=== PATIENT | female | born 1970 | race Caucasian/White ===

== ENCOUNTER 2018-05-04 21:52 | Emergency (ER) | payer OTHER, BC ==
[2018-05-04 21:58] VITALS: BMI 24.2
[2018-05-04] MEDS ORDERED: SODIUM CHLORIDE 1,000 ML IV STA (22:17)
--- NOTE | 2018-05-04 22:17 | PDOC ---
History of Present Illness - General Chief Complaint: Vomiting/Diarrhea Stated Complaint: abdominal pain Time Seen by Provider: 05/04/18 22:02 - History of Present Illness Initial Comments: 05/04/18 22:31 The patient is a 47 year old female with a history of HLD, Brain Aneurysm who presents for evaluation of nausea, vomiting, diarrhea. The patient reports that she is currently undergoing the bowel prep for a colonoscopy tomorrow and has been experiencing nausea, vomiting and diarrhea. She notes that when she has had colonoscopies in the past she has not experienced vomiting. She called her primary care provider Dr. Hernandez who referred the patient to the ED for further evaluation. She notes that her symptoms have significantly improved on presentation to the ED and otherwise denies fevers, chills, headache, SOB, chest pain, abdominal pain, or changes with urination. Past History - Past Medical History Allergies/Adverse Reactions: Allergies Allergy/AdvReac Type Severity Reaction Status Date / Time indomethacin [From Indocin] Allergy Rash Verified 05/04/18 21:58 iodine Allergy NAUSEA/VOMI Verified 05/04/18 21:58 TING Home Medications: Ambulatory Orders Levothyroxine [Synthroid -] 100 mcg PO DAILY 07/20/13 Rosuvastatin Calcium [Crestor] 5 mg PO HS tablet 02/14/15 Ranitidine [Zantac -] 150 mg PO HS 04/22/15 Ascorbic Acid [Vitamin C -] 1,000 mg PO DAILY 09/02/15 Cholecalciferol (Vitamin D3) [Vitamin D3] 2,000 unit PO DAILY 09/02/15 Zolpidem Tartrate [Ambien] 5 mg PO HS 09/02/15 Oxycodone HCl/Acetaminophen [Percocet 5-325 mg Tablet] 1 - 2 tab PO Q6H PRN #20 tab MDD 8 09/05/15 Methotrexate Sodium [Methotrexate] 2.5 mg PO DAILY 12/25/15 Iron/Folate No1/C/B12/Zinc/Dss [Feriva 21-7 Tablet] 1 each PO DAILY 12/27/15 Meloxicam 7.5 mg PO DAILY 01/03/16 Amox-Tr/K Cl [Augmentin - 875Mg Tablet] 1 tab PO BID #20 tablet 05/19/17 metroNIDAZOLE [Flagyl -] 500 mg PO TID #30 tablet 12/03/17 Anemia: Yes Asthma: No Cancer: No Cardiac Disorders: No (PALPITATIONS AT TIMES) CVA: No COPD: No CHF: No Dementia: No Diabetes: No GI Disorders: Yes Disorders: No HTN: No Hypercholesterolemia: Yes Liver Disease: No Seizures: Yes Thyroid Disease: Yes (HYPOTHYROID DISEASE) - Surgical History Abdominal Surgery: No Appendectomy: No Cardiac Surgery: No Cholecystectomy: No Lung Surgery: No Neurologic Surgery: Yes (aneurysms (BRAIN)) Orthopedic Surgery: Yes (RIGHT ROTATOR CUFF REPAIR) - Immunization History Immunization Up to Date: Yes - Suicide/Smoking/Psychosocial Hx Smoking Status: No Smoking History: Never smoked Have you smoked in the past 12 months: No Number of Cigarettes Smoked Daily: 0 If you are a former smoker, when did you quit?: 15YRS AGO Information on smoking cessation initiated: No Hx Alcohol Use: No Drug/Substance Use Hx: No Substance Use Type: None Hx Substance Use Treatment: No Review of Systems - Review of Systems Comments:: 05/04/18 22:39 Constitutional: No fevers, chills, fatigue, malaise HEENT: No Rhinorrhea, nasal congestion, visual changes Cardiovascular: No chest pain, syncope, palpitations, lightheadedness Respiratory: No Cough, SOB, Hemoptysis, Gastrointestinal: Nausea, Vomiting, diarrhea. No Abdominal pain, Constipation, Melena Genitourinary: No Dysuria, Frequency, Urgency, Hesitancy, Hematuria, Flank pain Musculoskeletal: No Myalgia, arthralgia Skin: No rashes, itching, bruising, pallor Neurologic: No Headache, Dizziness, Numbness, Weakness, or Tingling Psychiatric: No Hallucinations. No SI or HI *Physical Exam - Vital Signs Last Vital Signs Temp Pulse Resp BP Pulse Ox 98.0 F 81 16 134/83 100 05/04/18 21:55 05/04/18 21:55 05/04/18 21:55 05/04/18 21:55 05/04/18 21:55 - Physical Exam Comments: 05/04/18 22:40 General Appearance: Nourished. No Apparent Distress HEENT: No Pharyngeal Erythema, Tonsillar Exudate, Tonsillar Erythema Neck: No Cervical Lymphadenopathy Respiratory/Chest: Lungs Clear, Normal Breath Sounds. No Crackles, Rales, Rhonchi, Wheezing Cardiovascular: Regular Rhythm, Regular Rate. No Murmur, Gallops, Rubs Gastrointestinal/Abdominal: Hyperactive Bowel Sounds, Soft. No Guarding, Rebound , Tenderness Musculoskeletal: No CVA Tenderness Extremity: Normal Capillary Refill Integumentary: Normal Color, Dry, Warm Neurologic: Fully Oriented, Alert, Normal Mood/Affect, Normal Response, ED Treatment Course - LABORATORY CBC & Chemistry Diagram: 05/04/18 22:38 05/04/18 22:38 Medical Decision Making - Medical Decision Making 05/04/18 22:40 The patient is a 47 year old female with a history of HLD, Brain Aneurysm who presents for evaluation of nausea, vomiting, diarrhea. Given the patient's history and physical exam, it is likely her symptoms are due to the bowel prep for her colonoscopy tomorrow. However, we will obtain a cbc, cmp to evaluate further. We will treat with iv fluids and pepcid and continue to monitor and reassess while here in the ED. 05/04/18 23:18 CBC, cmp, are unremarkable. The patient continues to appears clinically well on exam. We are comfortable discharging the patient home at this time. We discussed the results, plan, and return precautions with the patient who voiced understanding and is agreeable with the plan. *DC/Admit/Observation/Transfer Diagnosis at time of Disposition: Nausea & vomiting Qualifiers: Vomiting type: unspecified Vomiting Intractability: unspecified Qualified Code( s): R11.2 - Nausea with vomiting, unspecified - Discharge Dispostion Disposition: HOME Condition at time of disposition: Stable Decision to Admit order: No - Referrals Referrals: Juan C Hernandez MD [Primary Care Provider] - - Patient Instructions Printed Discharge Instructions: DI for Nausea -- Adult, DI for Vomiting -- Adult Additional Instructions: Please return to the ER if you experience concerning or worsening symptoms including worsening difficulty breathing, weakness, or chest pain, abdominal pain. Your lab results were normal here in the ER. Please call to schedule a follow up appointment with your primary care provider to discuss your ER visit and further management of your symptoms. - Post Discharge Activity
[2018-05-04] MEDS ORDERED: FAMOTIDINE 20 MG/50 ML IVPB 20 MG/50 ML MG IVPB ONE ×2 (22:21→22:30)
[2018-05-04 22:46] LABS: BASO % 0.5 % (0-2.0); EOS % 3.9 % (0-4.5); HEMATOCRIT 33.9 % (32.4-45.2); HEMOGLOBIN 10.9 GM/dL (10.7-15.3); LYMPH % 34.5 % (8-40); MCH 25.1 pg (25.7-33.7); MCHC 32.1 g/dl (32.0-36.0); MEAN CELL VOLUME 78.1 fl (80-96); MEAN PLT VOLUME 8.3 fl (7.5-11.1); MONO % 8.1 % (3.8-10.2); PLATELET COUNT 281 K/MM3 (134-434); RBC 4.34 M/mm3 (3.60-5.2); RDW 14.2 % (11.6-15.6); WHITE BLOOD COUNT 7.3 K/mm3 (4.0-10.0)
--- NOTE | 2018-05-04 23:02 | PDOC ---
Attending Attestation - Physicial Exam PE: 05/04/18 23:09 GENERAL: Well developed, well nourished. Awake and alert. No acute distress. HEENT: Normocephalic, atraumatic. PERRLA, EOMI. No conjunctival pallor. Sclera are non- icteric. Moist mucous membranes. Oropharynx is clear. NECK: Supple. Full ROM. No JVD. Carotid pulses 2+ and symmetric, without bruits. No thyromegaly. No lymphadenopathy. CARDIOVASCULAR: Regular rate and rhythm. No murmurs, rubs, or gallops. Distal pulses are 2+ and symmetric. PULMONARY: No evidence of respiratory distress. Lungs clear to auscultation bilaterally. No wheezing, rales or rhonchi. ABDOMINAL: +Hyperactive bowel sounds. Soft. Non-tender. Non-distended. No rebound or guarding. No organomegaly. Normoactive bowel sounds. MUSCULOSKELETAL Normal range of motion at all joints. No bony deformities or tenderness. No CVA tenderness. EXTREMITIES: No cyanosis. No clubbing. No edema. No calf tenderness. SKIN: Warm and dry. Normal capillary refill. No rashes. No jaundice. NEUROLOGICAL: Alert, awake, appropriate. Cranial nerves 2-12 intact. PSYCHIATRIC: Cooperative. Good eye contact. Appropriate mood and affect. Documentation prepared by Leyla Donohue, acting as medical transport specialist for Patricia Bojorquez MD. <Leyla Donohue - Last Filed: 05/04/18 23:10> - Resident Resident Name: Abelardo Sam - ED Attending Attestation I have performed the following: I have examined & evaluated the patient, The case was reviewed & discussed with the resident, I agree w/resident's findings & plan, Exceptions are as noted - HPI HPI: 05/04/18 23:02 47-year-old female who was taking GoLYTELY for her colonoscopy tomorrow. Presents because of diarrhea and vomiting - Medical Decision Making 05/04/18 23:18 Patient's labs reviewed, and they are unremarkable Patient has benign abdominal exam Patient states that she feels much better now and she did complete all of her colonoscopy prep. Patient will be discharged home <Patricia Bojorquez - Last Filed: 05/04/18 23:19>
[2018-05-04 23:07] LABS: ALBUMIN 4.3 g/dl (3.4-5.0); ALK PHOS 67 U/L (45-117); ANION GAP 8 MMOL/L (8-16); BILIRUBIN,TOTAL 0.5 mg/dL (0.2-1); BLOOD UREA NITROGEN 8 mg/dL (7-18); CALCIUM 9.4 mg/dL (8.5-10.1); CHLORIDE 101 mmol/L (98-107); CO2 26 mmol/L (21-32); CREATININE 0.7 mg/dL (0.55-1.3); GLUCOSE,RANDOM 89 mg/dL (74-106); POTASSIUM 3.6 mmol/L (3.5-5.1); SGOT/AST 28 U/L (15-37); SGPT/ALT 38 U/L (13-61); SODIUM 135 mmol/L (136-145); TOT PROT 7.7 g/dl (6.4-8.2)
[2018-05-04 23:37] VITALS: BP 109/72; PULSE 77; TEMP 97.8
== END 2018-05-04 23:37 | disposition home or self-care (01) ==
LOC: JER 21:52
PROC: 3E033GC Introduction of Other Therapeutic Substance into Peripheral Vein, Percutaneous Approach (ICD-10-PCS; principal; 2018-05-04)
DX: R11.2 Nausea with vomiting, unspecified (principal); E78.00 Pure hypercholesterolemia, unspecified; E03.9 Hypothyroidism, unspecified; Z86.79 Personal history of other diseases of the circulatory system
CPT/HCPCS: 36415; 80053; 83690; 85025; 96365; 99281-25; J7030

== ENCOUNTER 2023-08-04 20:47 | Emergency (ER) | payer OTHER, BC ==
[2023-08-04 21:21] VITALS: BP 172/100; PULSE 90; RESP 18; TEMP 98.4; BMI 23.3
[2023-08-04] MEDS: SODIUM CHLORIDE 1,000 ML IV ONE (21:23)
[2023-08-04 21:29] LABS: HEMATOCRIT 34.7 % (32.4-45.2); HEMOGLOBIN 11.2 G/dL (10.7-15.3); MCH 24.9 pg (25.7-33.7); MCHC 32.3 g/dl (32.0-36.0); MEAN CELL VOLUME 76.9 fl (80-96); MEAN PLT VOLUME 9.2 fl (7.5-11.1); PLATELET COUNT 234.3 10^3/uL (134-434); RBC 4.51 10^6/uL (3.60-5.2); RDW 15.3 % (11.6-15.6); WHITE BLOOD COUNT 6.8 10^3/uL (4.0-10.8)
[2023-08-04 21:41] LABS: ALBUMIN 4.3 g/dl (3.4-5.0); ALK PHOS 87 U/L (45-117); ANION GAP 7 mmol/L (4-13); BILIRUBIN,TOTAL 0.2 mg/dl (0.2-1); CALCIUM 9.5 mg/dl (8.5-10.1); CHLORIDE 105 mmol/L (98-107); CO2 28 mmol/L (21-32); CREATININE 0.9 mg/dl (0.6-1.3); GLUCOSE,RANDOM 95 mg/dl (74-106); POTASSIUM 3.8 mmol/L (3.5-5.1); SGOT/AST 17 U/L (15-37); SGPT/ALT 12 U/L (7-52); SODIUM 140 mmol/L (136-145)
== END 2023-08-05 00:03 | disposition home or self-care (01) ==
LOC: FER 20:47
PROC: 3E0337Z Introduction of Electrolytic and Water Balance Substance into Peripheral Vein, Percutaneous Approach (ICD-10-PCS; principal; 2023-08-04)
DX: R00.2 Palpitations (principal); E05.90 Thyrotoxicosis, unspecified without thyrotoxic crisis or storm
CPT/HCPCS: 36415; 80053; 82550; 84443; 84484; 85027; 93005; 99284-25

== ENCOUNTER 2023-08-15 19:32 | Emergency (ER) | payer OTHER, BC ==
[2023-08-15 19:50] VITALS: BP 145/80; PULSE 48; RESP 16; TEMP 98.3; BMI 23.3
[2023-08-15 20:48] LABS: HEMOGLOBIN 11.4 G/dL (10.7-15.3); MCH 24.9 pg (25.7-33.7); MCHC 32.5 g/dl (32.0-36.0); MEAN CELL VOLUME 76.8 fl (80-96); MEAN PLT VOLUME 11.6 fl (7.5-11.1); PLATELET COUNT 154.5 10^3/uL (134-434); RBC 4.56 10^6/uL (3.60-5.2); RDW 15.2 % (11.6-15.6); WHITE BLOOD COUNT 6.6 10^3/uL (4.0-10.8)
[2023-08-15 21:05] LABS: ALBUMIN 4.5 g/dl (3.4-5.0); ALK PHOS 78 U/L (45-117); ANION GAP 8 mmol/L (4-13); CALCIUM 9.4 mg/dl (8.5-10.1); CHLORIDE 104 mmol/L (98-107); CO2 28 mmol/L (21-32); CREATININE 0.9 mg/dl (0.6-1.3); GLUCOSE,RANDOM 105 mg/dl (74-106); POTASSIUM 4.2 mmol/L (3.5-5.1); SGOT/AST 15 U/L (15-37); SGPT/ALT 11 U/L (7-52); SODIUM 140 mmol/L (136-145)
[2023-08-15 21:36] LABS: PLATELET ESTIMATE ADEQUATE
[2023-08-15 21:48] LABS: BILIRUBIN,TOTAL 0.2 mg/dl (0.2-1)
== END 2023-08-15 22:56 | disposition home or self-care (01) ==
LOC: FER 19:32
DX: R42 Dizziness and giddiness (principal); R51.9 Headache, unspecified
CPT/HCPCS: 36415; 70450-TC; 80053; 84443; 84484; 85027; 93005; 99285-25